=== PATIENT | female | born 1950 | race Caucasian/White ===

== ENCOUNTER 2020-07-18 13:16 | Emergency (ER) | payer SELFPAY ==
[2020-07-18] MEDS ORDERED: BAMLANIVIMAB 700 MG in SODIUM CHLORIDE 0.9% 250 ML IV STA (15:13)
--- NOTE | 2020-07-18 15:17 | ED Physician Documentation ---
History of Present Illness - Stated complaint Stated Complaint: HEADACHE/TIRED - Chief complaint Chief Complaint: General - History obtained from History obtained from: Patient - History of Present Illness Pain level max: 0 Pain level now: 0 - Additonal information Additional information: Patient is a 69-year-old female who tested positive for Covid about 5 days ago, symptoms started about 6 days ago. Received 1 dose of a Pfizer vaccination in April. History of diabetes. Her doctor sent her here for bamlanivimab infusion. No fever. No cough. Patient currently feels well. Review of Systems Ten Systems: 10 systems reviewed and negative Constitutional: denies: Fever, Chills Nose: denies: Rhinorrhea / runny nose, Congestion Throat: denies: Sore throat Respiratory: denies: Cough, Wheezing GI: denies: Abdominal Pain, Vomiting Skin: denies: Rash Musculoskeletal: denies: Neck pain, Back pain Neurologic: denies: Headache PD PAST MEDICAL HISTORY - Past Medical History Past Medical History: Yes - Allergies Allergies/Adverse Reactions: Allergies Allergy/AdvReac Type Severity Reaction Status Date / Time No Known Drug Allergies Allergy Verified 07/18/20 13:21 - Social History Does the pt smoke?: No Smoking Status: Never smoker Does the pt drink ETOH?: No Does the pt have substance abuse?: No - Immunizations Immunizations are current?: Yes PD ED PE NORMAL - Vitals Vital signs reviewed: Yes - General General: Alert and oriented X 3, No acute distress, Well developed/nourished - HEENT HEENT: PERRL, Moist mucous membranes - Neck Neck: Supple, no meningeal sign - Cardiac Cardiac: RRR, Strong equal pulses - Respiratory Respiratory: No respiratory distress, Clear bilaterally - Abdomen Abdomen: Soft, Non tender, Non distended - Derm Derm: Warm and dry - Extremities Extremities: No edema, No calf tenderness / cord - Neuro Neuro: Alert and oriented X 3 - Psych Psych: Normal mood, Normal affect Results - Vitals Vitals: Vital Signs - 24 hr 07/18/20 07/18/20 07/18/20 13:21 15:52 17:53 Temperature 37.7 C 37.5 C Heart Rate 90 76 68 Respiratory 16 18 18 Rate Blood Pressure 115/56 L 111/73 113/78 O2 Saturation 96 100 97 Oxygen O2 Source Room air PD MEDICAL DECISION MAKING - ED course Complexity details: re-evaluated patient, considered differential, d/w patient, d/w family ED course: Infusion completed. No complications. Patient is well-appearing, nontoxic. Afebrile. No hypoxia. We will have the patient follow-up with her doctor for further care. This document was made in part using voice recognition software. While efforts are made to proofread this document, sound alike and grammatical errors may occur. Departure - Departure Disposition: 01 Home, Self Care Clinical Impression: COVID-19 Condition: Good Instructions: COVID-19 [facility] Follow-Up: your,doctor in 1 week [Other] Comments: You received your bamlanivimab infusion today. Follow-up with your doctor for further care. Discharge Date/Time: 07/18/20 18:33
[2020-07-18 17:54] VITALS: BP 113/78
== END 2020-07-18 18:33 | disposition home or self-care (01) ==
LOC: ED 13:16
DX: U07.1 COVID-19 (principal); E11.9 Type 2 diabetes mellitus without complications
CPT/HCPCS: 99283; 99284; M0239; Q0239